=== PATIENT | female | born 1950 | race American Indian/Alaskan Native ===

== ENCOUNTER 2016-09-05 09:17 | Outpatient (CLI) | payer MEDICARE ==
--- NOTE | 2016-09-05 10:25 | Mammography Report ---
BILATERAL DIGITAL DIAGNOSTIC MAMMOGRAM WITH CAD : 09/05/16 09:17:00 CLINICAL: Breast cancer survivor status post right partial mastectomy and radiation therapy for breast cancer. COMPARISON:08/02/15 FINDINGS: The breasts are heterogeneously dense, which may obscure small masses. Right upper outer postsurgical scar. No mass, suspicious architectural distortion or suspicious calcifications. Moderate right periareolar skin thickening. IMPRESSION: No mammographic evidence of malignancy. Benign postsurgical and post radiation changes in the right breast. BI-RADS CATEGORY: 2 -- Benign RECOMMENDATION: Routine mammographic screening in one year. COMMENT: Patient follow-up letters are generated via our [employer] application.
== END 2016-09-05 09:18 | disposition home or self-care (01) ==
LOC: SPVWC 09:17
PROVIDERS: ATTEND Surgery
DX: R92.8 Other abnormal and inconclusive findings on diagnostic imaging of breast (principal); I10 Essential (primary) hypertension; Z85.3 Personal history of malignant neoplasm of breast; Z90.11 Acquired absence of right breast and nipple
CPT/HCPCS: 77066; G0204